=== PATIENT | male | born 1985 | race Caucasian/White ===

== ENCOUNTER → 2018-12-12 | Outpatient (CLI) | payer OTHER ==
--- NOTE | 2018-12-12 11:57 | REP ---
Chest two views HISTORY: Testicular carcinoma Comparison: None The lungs are clear. The heart is normal in size. The pulmonary vasculature is normal in appearance. The bony structure is intact. An Dswpci-U-Ypal catheter is present. Impression: No acute disease. Electronically Signed by Garfield Yi MD 12/12/2018 11:49 A
== END ==
LOC: M RAD 08:59
PROVIDERS: ATTEND Surgery
DX: C62.90 Malignant neoplasm of unspecified testis, unspecified whether descended or undescended (principal)

== ENCOUNTER → 2019-01-31 | Outpatient (REF) | payer OTHER ==
[2019-01-31 14:05] LABS: INR 1.01; PROTHROMBIN TIME 13.4 SECONDS (12.1-14.4)
== END ==
LOC: M LAB REF 13:01
PROVIDERS: ATTEND Surgery
DX: Z01.812 Encounter for preprocedural laboratory examination (principal)

== ENCOUNTER 2019-03-08 20:42 | Emergency (ER) | payer OTHER ==
[~2019-03-08] VITALS: Ht 172.7 cm; Wt 145.0 kg
[2019-03-08] MEDS ORDERED: TRIL1TAB PO (21:00)
[2019-03-08] MEDS ORDERED: IMIT50TA PO (21:00)
[2019-03-08 22:36] VITALS: BP 121/84
--- NOTE | 2019-03-09 08:27 | REP ---
Right thumb four views : There is no fracture or dislocation. Mineralization and joint spaces are normal. There are no calcifications or foreign bodies. Impression: Negative right thumb . Electronically Signed by Wilbert Elder MD 03/09/2019 08:18 A
== END 2019-03-08 22:41 | disposition home or self-care (01) ==
LOC: M ED 20:42
DX: S63.601A Unspecified sprain of right thumb, initial encounter (principal); X58.XXXA Exposure to other specified factors, initial encounter; Y92.89 Other specified places as the place of occurrence of the external cause; Z88.1 Allergy status to other antibiotic agents; Z88.2 Allergy status to sulfonamides; Z88.8 Allergy status to other drugs, medicaments and biological substances; F17.210 Nicotine dependence, cigarettes, uncomplicated